=== PATIENT | male | born 1960 | race Caucasian/White ===

== ENCOUNTER 2019-04-08 19:30 | Emergency (ER) | payer OTHER ==
[2019-04-08] MEDS ORDERED: IPRATROPIUM/ALBUTEROL SULFATE 3 ML AMPUL.NEB NEB ONE (19:59)
[2019-04-08] MEDS ORDERED: methylPREDNISolone SOD SUCC 125 MG/2 ML VIAL ONE (19:59)
[2019-04-15 13:24] LABS: APPEARANCE,URINE CLEAR (CLEAR); COLOR,URINE YELLOW (YELLOW); OCCULT BLOOD,URINE T (NEGATIVE)
[2019-04-15 13:25] LABS: CANNABINOIDS NEGATIVE ng/mL (< 50); METHYLENEDIOXYMETHAMPHETAMINE NEGATIVE ng/mL (<500)
[2019-04-15 13:26] LABS: BASOPHILS % 0.5 % (0.0-1.5); NEUTROPHILS # 4.7 # k/uL (1.4-7.7); eGFR (Non-African) > 60
--- NOTE | 2019-05-03 13:01 | Diagnostic Imaging Report ---
PAIGE JEFFERS [facility] [id number] [facility].[address] [id number] Report Submission Date: Apr 08, 2019 8:33:13 PM CDT Patient Study Name: MELLISSA BAKER Date: Apr 08, 2019 7:53:36 PM CDT Modality Type: DX Gender: M Description: CHEST 1 : 60 Institution: [facility] Physician: PAIGE JEFFERS Portable view chest Clinical history: short of breath Findings: The heart size is normal. The pulmonary vasculature is normal. No pleural effusion, pneumothorax or alveolar consolidation. Impression: No acute disease in the chest Electronically signed on Apr 08, 2019 8:33:13 PM CDT by: Mike MARTEL
== END 2019-04-08 21:30 | disposition home or self-care (01) ==
LOC: ED 19:30
DX: J40 Bronchitis, not specified as acute or chronic (principal)
CPT/HCPCS: 80053; 80377; 81002; 82553; 83880; 84484; 85025; 85379; 85610; 85730; 93005; J2930; G0481